=== PATIENT | male | born 1985 | race Caucasian/White ===

== ENCOUNTER 2018-11-27 03:07 | Emergency (ER) | payer OTHER ==
[~2018-11-27] VITALS: Ht 170.2 cm; Wt 73.5 kg
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
--- NOTE | 2018-11-27 03:35 | NUR ---
[employer] AT BEDSIDE TALKING TO PT
--- NOTE | 2018-11-27 03:46 | NUR ---
PT WHEELED TO RADIOLOGY ON [facility]
[2018-11-27 05:08] VITALS: BP 121/80
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
--- NOTE | 2018-11-27 05:37 | NUR ---
Patient discharged to home in stable condition. Written and verbal after care instructions given. Patient verbalizes understanding of instruction.Crutches dispensed. Pt instructed on proper use of crutches. Patient able to demonstrate correct use of crutches. [employer] to book.
== END 2018-11-27 05:47 ==
LOC: ER 03:13
DX: S92.351A Displaced fracture of fifth metatarsal bone, right foot, initial encounter for closed fracture (principal); S09.8XXA Other specified injuries of head, initial encounter; F98.8 Other specified behavioral and emotional disorders with onset usually occurring in childhood and adolescence; Z60.2 Problems related to living alone; V49.69XA Unspecified car occupant injured in collision with other motor vehicles in traffic accident, initial encounter; Y93.89 Activity, other specified; Y92.413 State road as the place of occurrence of the external cause; Y99.8 Other external cause status
CPT/HCPCS: 29515; 70450; 73610; 99284; A6402